=== PATIENT | female | born 1980 | race Caucasian/White ===

== ENCOUNTER 2023-09-05 12:56 | Outpatient (CLI) | payer MEDICAID | END 2023-09-05 23:59 | disposition home or self-care (01) | LOC: RAD 12:56 | PROVIDERS: ATTEND Nurse Practitioner Family | DX: N83.201 Unspecified ovarian cyst, right side (principal); N92.1 Excessive and frequent menstruation with irregular cycle; D25.9 Leiomyoma of uterus, unspecified | CPT/HCPCS: 76830; 93976 ==